=== PATIENT | male | born 2000 | race Caucasian/White ===

== ENCOUNTER 2025-02-14 01:00 | Emergency (ER) | payer OTHER ==
[2025-02-14 01:14] VITALS: BP 162/87; PULSE 69; RESP 18; TEMP 97.8
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
== END 2025-02-14 02:00 | disposition home or self-care (01) ==
LOC: EC 01:00
DX: Z04.1 Encounter for examination and observation following transport accident (principal); V49.40XA Driver injured in collision with unspecified motor vehicles in traffic accident, initial encounter; Y92.410 Unspecified street and highway as the place of occurrence of the external cause
CPT/HCPCS: 82075; 99283